=== PATIENT | male | born 1980 ===

== ENCOUNTER 2017-04-06 09:57 | Emergency (ER) | payer OTHER ==
[2017-04-06 10:03] VITALS: BMI 24.6
--- NOTE | 2017-04-06 10:17 | C.PDOC ---
History Of Present Illness 36 year old male who presents to the ER after being hit directly in the right eye with a tennis ball. Patient states he cannot see out of his right eye. Denies PMHx, use of medication, or use of glasses/contact lenses. Time Seen by Provider: 04/06/17 10:09 Chief Complaint (Nursing): Eye Problem History Per: Patient History/Exam Limitations: no limitations Onset/Duration Of Symptoms: Mins Current Symptoms Are (Timing): Still Present Injury To Eye?: Yes Wears Contact Lens?: No Associated Symptoms: Decreased Vision Recent travel outside of the [place]: No Past Medical History Reviewed: Historical Data, Nursing Documentation, Vital Signs Vital Signs: Last Vital Signs Temp 97.6 F 04/06/17 12:38 Pulse 70 04/06/17 12:38 Resp 18 04/06/17 12:38 BP 128/85 04/06/17 12:38 Pulse Ox 100 04/06/17 14:50 - Medical History PMH: No Chronic Diseases Surgical History: No Surg Hx Family History: States: Unknown Family Hx - Social History Hx Alcohol Use: Yes Hx Substance Use: No - Immunization History Hx Tetanus Toxoid Vaccination: No Hx Influenza Vaccination: Yes Hx Pneumococcal Vaccination: No Review Of Systems Except As Marked, All Systems Reviewed And Found Negative. Constitutional: Negative for: Fever, Chills Eyes: Positive for: Pain, Vision Change, Redness Cardiovascular: Negative for: Chest Pain Respiratory: Negative for: Cough, Shortness of Breath Gastrointestinal: Negative for: Nausea, Vomiting, Abdominal Pain, Diarrhea Neurological: Negative for: Weakness, Numbness Physical Exam - Physical Exam Appears: Non-toxic Skin: Normal Color, Warm, Dry Head: Atraumatic, Normacephalic Eye(s): bilateral: EOMI, right: Other (Diffuse subconjunctival hemorrhage, fixed , dilated, nonreactive pupil, cloudy cornea. Able to see light and movement but cannot count fingers that are directly in front of him. No proptosis.), left: Normal Inspection Ear(s): Bilateral: Normal Nose: Normal, No Deformity Oral Mucosa: Moist Neck: Normal, Supple Neurological/Psych: Oriented x3, Normal Speech, Normal Cognition, Other (No focal deficits) ED Course And Treatment O2 Sat by Pulse Oximetry: 100 (Room air) Pulse Ox Interpretation: Normal - CT Scan/US CT orbits Other Rad Studies (CT/US): Read By Radiologist, Radiology Report Reviewed CT/US Interpretation: PROCEDURE: CT scan orbits dated 04/06/2017. HISTORY: Right eye injury. Globe injury. COMPARISON: No prior. TECHNIQUE: Contiguous helical/transaxial images of the orbits were obtained. Coronal and sagittal reformats were generated. Radiation dose: Total exam DLP = 740.0 mGy- cm. This CT exam was performed using one or more of the following dose reduction techniques: Automated exposure control, adjustment of the mA and/or kV according to patient size, and/or use of iterative reconstruction technique. FINDINGS: Findings: Current study reveals no evidence of acute fractures of the maxillofacial skeleton. The bony orbits intact. The globes are intact and lenses appropriately located. There are no retrobulbar hemorrhages or collections. Optic nerves and extraocular musculature unremarkable. There does appear to be some very mild right periorbital soft tissue swelling which extends into the right supraorbital and frontal region. The. Paranasal sinuses are well-developed. . There are no fluid levels seen to suggest acute hemorrhage or sinusitis. Polypoid like mucosal thickening and or mucous retention cyst formation seen within the inferior margins both maxillary antra along with minimal linear mucosal thickening. . There is minor mucosal thickening also seen along the roofs of both maxillary antra right greater than left. Left ostiomeatal complex is patent. Right ostiomeatal complex appears somewhat is narrowed and may be just barely occluded. . Some very minimal mucosal thickening noted within the ethmoid air complex extending superiorly into the inferior margin of the frontal sinus. There is minor focal deviation of the nasal septum from right to left. The visualized portions of the mastoid air complexes are well-developed and well-aerated. Cerumen noted within the left external auditory canal. Visualized mandible intact. Impression: No evidence of acute maxillofacial skeletal fracture. Specifically, there are no orbital fractures. Mild right periorbital soft tissue swelling. The swelling appears to extend superiorly into the right supraorbital and frontal region. . The globes appear globe is intact. Mild mucoperiosteal inflammatory changes within both maxillary antra as above. Medical Decision Making Medical Decision Making: Patient unable to perform visual acuity test as he states he cannot see through his right eye. Paged Dr. Song at 10:17, message was left. Spoke with Dr. Song at 10:28, states he is not labor relations officer, referred Dr. Blair Paged Dr. Blair at 10:32, message was left. Placed simmons eye patch Spoke with Dr. Hein at 10:48, requested CT and advised for transfer to [facility]. Spoke with [facility] transfer center at 10:58, they gave number for labor relations officer ophthalmology. Paged [facility] labor relations officer ophthalmology at 11:00. Transfer to [facility] accepted by Dr. Escobar at 11:28. Dr. Hein at bedside examining patient at 11:30 Disposition - Disposition Disposition: Trans to Other Acute Care Hosp Disposition Time: 12:46 Condition: GUARDED - Clinical Impression Clinical Impression: Traumatic injury of globe of right eye - Scribe Statement The provider has reviewed the documentation as recorded by the Scribe Martin Alegria All medical record entries made by the Scribe were at my direction and personally dictated by me. I have reviewed the chart and agree that the record accurately reflects my personal performance of the history, physical exam, medical decision making, and the department course for this patient. I have also personally directed, reviewed, and agree with the discharge instructions and disposition.
--- NOTE | 2017-04-06 11:48 | C.PDOC ---
History Of Present Illness 36 yo M presented to ED with blunt trauma OD from tennis ball this morning. States cannot see out of right eye and has pain. Time Seen by Provider: 04/06/17 10:09 Chief Complaint (Nursing): Eye Problem Past Medical History Vital Signs: Last Vital Signs Temp 98.1 F 04/06/17 10:04 Pulse 92 H 04/06/17 10:04 Resp 20 04/06/17 10:04 BP 131/81 04/06/17 10:04 Pulse Ox 100 04/06/17 11:52 - Medical History PMH: No Chronic Diseases Surgical History: No Surg Hx Family History: States: Unknown Family Hx - Social History Hx Alcohol Use: Yes Hx Substance Use: No - Immunization History Hx Tetanus Toxoid Vaccination: No Hx Influenza Vaccination: Yes Hx Pneumococcal Vaccination: No Review Of Systems Eyes: Positive for: Pain, Vision Change, Redness Physical Exam - Physical Exam Eye(s): bilateral: EOMI, Other (Va OD CF OS 20/30, soft to palpation OU, OD with diffuse chemosis, +temporal and inferior MANPREET, OD K diffuse staining AC deep compared to OS, no view posteriorly), right: Abnormal Pupil, Eyelid Inflammation, Photophobia, left: Normal Inspection, PERRL (dilated pupil OD, + trace APD by reverse) ED Course And Treatment O2 Sat by Pulse Oximetry: 100 (Room air) Disposition Comment: R globe blunt trauma with CF vision OD, 360 degree chemosis/MANPREET, hyperdeep chamber, no view posteriorly. Cannot exclude posterior rupture of globe OD recommend transfer to [facility] for possible exploration. - Disposition Disposition: Trans to Other Acute Care Hosp Disposition Time: 11:55 Condition: GUARDED - Clinical Impression Clinical Impression: Traumatic injury of globe of right eye
[2017-04-06 12:03] VITALS: RESP 18
[2017-04-06 12:42] VITALS: BP 128/85; PULSE 70; TEMP 97.6
--- NOTE | 2017-04-06 13:07 | CT ---
PROCEDURE: CT scan orbits dated 04/06/2017 HISTORY: Right eye injury. Globe injury COMPARISON: No prior TECHNIQUE: Contiguous helical/transaxial images of the orbits were obtained. Coronal and sagittal reformats were generated. Radiation dose: Total exam DLP = 740.0 mGy-cm. This CT exam was performed using one or more of the following dose reduction techniques: Automated exposure control, adjustment of the mA and/or kV according to patient size, and/or use of iterative reconstruction technique. FINDINGS: Findings: Current study reveals no evidence of acute fractures of the maxillofacial skeleton. The bony orbits intact. The globes are intact and lenses appropriately located. There are no retrobulbar hemorrhages or collections. Optic nerves and extraocular musculature unremarkable. There does appear to be some very mild right periorbital soft tissue swelling which extends into the right supraorbital and frontal region. The Paranasal sinuses are well-developed. . There are no fluid levels seen to suggest acute hemorrhage or sinusitis. Polypoid like mucosal thickening and or mucous retention cyst formation seen within the inferior margins both maxillary antra along with minimal linear mucosal thickening. . There is minor mucosal thickening also seen along the roofs of both maxillary antra right greater than left. Left ostiomeatal complex is patent. Right ostiomeatal complex appears somewhat is narrowed and may be just barely occluded. . Some very minimal mucosal thickening noted within the ethmoid air complex extending superiorly into the inferior margin of the frontal sinus. There is minor focal deviation of the nasal septum from right to left. The visualized portions of the mastoid air complexes are well-developed and well-aerated. Cerumen noted within the left external auditory canal. Visualized mandible intact. Impression: No evidence of acute maxillofacial skeletal fracture. Specifically, there are no orbital fractures. Mild right periorbital soft tissue swelling. The swelling appears to extend superiorly into the right supraorbital and frontal region. . The globes appear globe is intact. Mild mucoperiosteal inflammatory changes within both maxillary antra as above. .
[2017-04-06 14:50] VITALS: O2SAT 100
== END 2017-04-06 12:48 | disposition short-term general hospital (02) ==
LOC: C.ER 09:57
DX: S05.8X1A Other injuries of right eye and orbit, initial encounter (principal); W21.09XA Struck by other hit or thrown ball, initial encounter; Y93.59 Activity, other involving other sports and athletics played individually